=== PATIENT | male | born 1965 | race American Indian/Alaskan Native ===

== ENCOUNTER 2020-05-09 11:09 | Emergency (ER) | payer OTHER ==
[2020-05-09 14:42] VITALS: BP 144/100
--- NOTE | 2020-05-09 15:48 | XRay Report ---
ABDOMEN 3 VIEW(S) INDICATION / CLINICAL INFORMATION: constipation abd pain. COMPARISON: None available. FINDINGS: TUBES / LINES: None. BOWEL GAS PATTERN: No significant abnormality. FREE AIR / EXTRALUMINAL GAS: None seen. ADDITIONAL FINDINGS: No significant additional findings. LUNGS: Visualized lungs show no significant abnormality. IMPRESSION: 1. No significant abnormality. Signer Name: Rock Casas MD Signed: 05/09/2020 3:43 PM Workstation Name: [id number]
--- NOTE | 2020-05-09 17:07 | Emergency Department Report ---
ED Abdominal Pain HPI - General Chief Complaint: Abdominal Pain Stated Complaint: CONSTIPATION/RT SIDE PAIN Time Seen by Provider: 05/09/20 15:10 Source: patient Mode of arrival: Ambulatory Limitations: No Limitations - History of Present Illness Initial Comments: 54-year-old -Cyp[place] male with no significant past medical history presents emerged department complaining of a 6-day history of constipation not responding to [id number] MiraLAX. States that he is still passing gas and has vague spasms off and on but reports no nausea or vomiting, no fever, chills, sweats, no hemoptysis, no hematemesis, no hematochezia. Reports no chest pain or palpitation. Reports no new or changing medications. Location: diffuse Radiation: none Migration to: no migration Severity: mild Severity scale (0 -10): 5 Improves With: nothing Worsens With: nothing Associated Symptoms: constipation. denies: nausea, vomiting, diarrhea, dysuria, hematemesis, melena, hematuria, anorexia - Related Data Previous Rx's Medication Instructions Recorded Last Taken Type [id number]/Sod Sulf,Bicarb,Cl/KCl 4,000 ml PO ONCE #4000 soln.recon 05/09/20 Unknown Rx [Golytely Solution] bisacodyL [Dulcolax suppos] 10 mg SC ONCE #7 supp.rect 05/09/20 Unknown Rx ED Review of Systems ROS: Stated complaint: CONSTIPATION/RT SIDE PAIN Other details as noted in HPI Constitutional: denies: chills, fever Eyes: denies: eye pain, eye discharge, vision change ENT: denies: ear pain, throat pain Respiratory: denies: cough, shortness of breath, wheezing Cardiovascular: denies: chest pain, palpitations Endocrine: no symptoms reported Gastrointestinal: denies: abdominal pain, nausea, diarrhea Genitourinary: denies: urgency, dysuria Musculoskeletal: denies: back pain, joint swelling, arthralgia Skin: denies: rash, lesions Neurological: denies: headache, weakness, paresthesias Psychiatric: denies: anxiety, depression Hematological/Lymphatic: denies: easy bleeding, easy bruising ED Past Medical Hx - Past Medical History Previous Medical History?: No - Surgical History Past Surgical History?: Yes Additional Surgical History: hernia repair as a baby - Medications Home Medications: Home Medications Medication Instructions Recorded Confirmed Last Taken Type [id number]/Sod Sulf,Bicarb,Cl/KCl 4,000 ml PO ONCE #4000 soln.recon 05/09/20 Unknown Rx [Golytely Solution] bisacodyL [Dulcolax suppos] 10 mg SC ONCE #7 supp.rect 05/09/20 Unknown Rx ED Physical Exam - General Limitations: No Limitations General appearance: alert, in no apparent distress - Head Head exam: Present: atraumatic, normocephalic - Eye Eye exam: Present: normal appearance - ENT ENT exam: Present: mucous membranes moist - Neck Neck exam: Present: normal inspection - Respiratory Respiratory exam: Present: normal lung sounds bilaterally. Absent: respiratory distress - Cardiovascular Cardiovascular Exam: Present: regular rate, normal rhythm. Absent: systolic murmur, diastolic murmur, rubs, gallop - GI/Abdominal GI/Abdominal exam: Present: soft, normal bowel sounds, other (Normal bowel sounds throughout. No tenderness at McBurney's, no Membreno sign. Abdomen is not distended.). Absent: distended, tenderness - Rectal Rectal exam: Present: deferred - Extremities Exam Extremities exam: Present: normal inspection - Back Exam Back exam: Present: normal inspection - Neurological Exam Neurological exam: Present: alert, oriented X3 - Psychiatric Psychiatric exam: Present: normal affect, normal mood - Skin Skin exam: Present: warm, dry, intact, normal color. Absent: rash ED Course Vital Signs 05/09/20 05/09/20 05/09/20 11:25 14:36 14:42 Temperature 98.6 F 98.0 F 98.0 F Pulse Rate 77 92 H 82 Respiratory 20 14 14 Rate Blood Pressure 144/100 Blood Pressure 137/91 144/100 [Right] O2 Sat by Pulse 96 98 99 Oximetry ED Medical Decision Making - Radiology Data Radiology results: report reviewed [facility] [address] [place] [address] XRay Report Signed Patient: MIKA DERAS MR#: [id number] : 1965 Acct:[id number] Age/Sex: 54 / M ADM Date: 05/09/20 Loc: ED Attending Dr: Ordering Physician: YANETH MARTINEZ Date of Service: 05/09/20 Procedure(s): XR abd series w cxr 1V Accession Number(s): [id number] cc: YANETH MARTINEZ Fluoro Time In Minutes: ABDOMEN 3 VIEW(S) INDICATION / CLINICAL INFORMATION: constipation abd pain. COMPARISON: None available. FINDINGS: TUBES / LINES: None. BOWEL GAS PATTERN: No significant abnormality. FREE AIR / EXTRALUMINAL GAS: None seen. ADDITIONAL FINDINGS: No significant additional findings. LUNGS: Visualized lungs show no significant abnormality. IMPRESSION: 1. No significant abnormality. Signer Name: Rock Casas MD Signed: 05/09/2020 3:43 PM Workstation Name: [id number] Transcribed By: FERNANDO Dictated By: Rock Casas MD Electronically Authenticated By: Rock Casas MD Signed Date/Time: 05/09/201542 DD/ 42 TD/TT: - Medical Decision Making This patient presents with abdominal pain of unclear etiology. Their evaluation has not identified a emergent etiology for the abdominal pain. Specifically, given the very benign exam, normal laboratory studies, and lack of significant risk factors, I have a very low suspicion for appendicitis, ischemic bowel, bowel perforation, or any other life threatening disease. I have discussed with the patient the level of uncertainty with undifferentiated abdominal pain and clearly explained the need to follow-up as noted on the discharge instructions, or return to the Emergency Department immediately if the pain worsens, develops fever, persistent and uncontrollable vomiting, or for any new symptoms or concerns. I discussed with the patient that this presentation today for abdominal pain could represent a significant risk for an acute abdominal process. Although the tests in the ED were essentially normal, there is still a possibility of a process such as appendicitis, diverticulitis, cholecystitis, ulcer, early bowel obstruction, mesenteric ischemia, kidney stone, or even kidney infection which could subsequently cause disability or . The patient understands that they must return within 24 hours for a recheck or see their physician within 24 hours for re-exam due to the possibility of significant surgical or medical process. We also started him on the medication to utilize to help with the constipation issue that is current. Will start him on lactulose or GoLYTELY Critical care attestation.: If time is entered above; I have spent that time in minutes in the direct care of this critically ill patient, excluding procedure time. ED Disposition Clinical Impression: Constipation Disposition: DC-01 TO HOME OR SELFCARE Is pt being admited?: No Does the pt Need Aspirin: No Condition: Stable Instructions: Abdominal Pain (ED), High Fiber Diet (ED), Constipation (ED) Additional Instructions: Begin drinking the electrolyte solution at 6:00 p.m. You may start earlier if you prefer. Drink one, 8 oz. glass every 10-20 minutes. Slow down or stop for 30 minutes if you begin to have nausea or abdominal discomfort. Do not drink the gallon in less than 3 hours but no more than 4 hours. Drink the entire prep. Liquid stools will usually start within a few hours. Continue drinking clear liquids even after you've finished the prep, as tolerated. Extra fluids will continue to clean out your colon and keep you hydrated. Your prep is adequate if you're passing clear, yellow fluid without sediment. Prescriptions: bisacodyL [Dulcolax suppos] 10 mg SC ONCE #7 supp.rect [id number]/Sod Sulf,Bicarb,Cl/KCl [Golytely Solution] 4,000 ml PO ONCE #4000 soln.recon Referrals: [facility] [Provider Group] - 3-5 Days
== END 2020-05-09 17:46 | disposition home or self-care (01) ==
LOC: ED 11:09
DX: K59.00 Constipation, unspecified (principal); Z79.899 Other long term (current) drug therapy; Z98.890 Other specified postprocedural states
CPT/HCPCS: 74022; 99283